=== PATIENT | female | born 1995 | race African-American/Black ===

== ENCOUNTER 2018-10-24 17:08 | Emergency (ER) | payer SELFPAY ==
[~2018-10-24] VITALS: Ht 152.4 cm; Wt 46.7 kg
[2018-10-24 17:49] LABS: BILIRUBIN,URINE NEGATIVE (NEG); CLARITY,URINE CLOUDY; COLOR,URINE YELLOW; NITRITE,URINE NEGATIVE (NEG); PROTEIN,URINE 30 mg/dL (NEG-TRACE)
--- NOTE | 2018-10-24 17:51 | PHYS DOC ---
Past Medical History Past Medical History: No Pertinent History Past Surgical History: Other Additional Past Surgical Histo: surgical Alcohol Use: None Drug Use: None Adult General Chief Complaint Chief Complaint: ABDOMINAL PAIN IN HPI HPI Patient is a 23 year old female who presents with private NC test was positive last week and ever since that she's had a sharp pain that comes and goes in her right lower abdomen. She rates it now at a 4 out of 10. She denies any nausea or vomiting or other abdominal pain. She denies any dysuria. Patient states this is her second chin and April 30 surgical procedure. Patient states she has no OB doctor. I asked period was August 28. She has no known drug allergies. Patient states she has more vaginal discharge than normal but denies any vaginal bleeding. Review of Systems Review of Systems Constitutional: Denies fever or chills [] Eyes: Denies change in visual acuity, redness, or eye pain [] HENT: Denies nasal congestion or sore throat [] Respiratory: Denies cough or shortness of breath [] Cardiovascular: No additional information not addressed in HPI [] GI: Right lower abdominal pain. Denies nausea, vomiting, bloody stools or diarrhea [] : Denies dysuria or hematuria [] Musculoskeletal: Denies back pain or joint pain [] Integument: Denies rash or skin lesions [] Neurologic: Denies headache, focal weakness or sensory changes [] All other systems were reviewed and found to be within normal limits, except as documented in this note. Current Medications Current Medications Current Medications Medications (Trade) Dose Ordered Sig/Natalie Start Time Stop Time Status Last Admin Dose Admin Azithromycin (Zithromax) 1,000 mg 1X ONCE 10/24/18 18:30 10/24/18 18:31 DC 10/24/18 19:30 1,000 MG Ceftriaxone Sodium (Rocephin Im) 250 mg 1X ONCE 10/24/18 18:30 10/24/18 18:31 DC 10/24/18 19:30 250 MG Allergies Allergies Allergies Coded Allergies Type Severity Reaction Last Updated Verified No Known Drug Allergies 11/17/15 No Physical Exam Physical Exam Constitutional: Well developed, well nourished, no acute distress, non-toxic appearance. [] HENT: Normocephalic, atraumatic, bilateral external ears normal, oropharynx moist, no oral exudates, nose normal. [] Eyes: PERRLA, EOMI, conjunctiva normal, no discharge. [] Neck: Normal range of motion, no tenderness, supple, no stridor. [] Cardiovascular:Heart rate regular rhythm, no murmur [] Lungs & Thorax: Bilateral breath sounds clear to auscultation [] Abdomen: Bowel sounds normal, soft, no tenderness, no masses, no pulsatile masses. Vaginal discharge. [] Skin: Warm, dry, no erythema, no rash. [] Back: No tenderness, no CVA tenderness. [] Extremities: No tenderness, no cyanosis, no clubbing, ROM intact, no edema. [] Neurologic: Alert and oriented X 3, normal motor function, normal sensory function, no focal deficits noted. [] Psychologic: Affect normal, judgement normal, mood normal. [] Current Patient Data Vital Signs Vital Signs Date Time Temp Pulse Resp B/P (MAP) Pulse Ox O2 Delivery O2 Flow Rate FiO2 10/24/18 17:19 98.7 102 18 112/62 (79) 100 Room Air 98.7 Lab Values Laboratory Tests Test 10/24/18 17:28 10/24/18 17:29 10/24/18 18:10 POC Urine HCG, Qualitative Hcg positive (Negative) Urine Collection Type Unknown Urine Color Yellow Urine Clarity Cloudy Urine pH 6.0 Urine Specific [place] >=1.030 Urine Protein 30 mg/dL (NEG-TRACE) Urine Glucose (UA) Negative mg/dL (NEG) Urine Ketones (Stick) Trace mg/dL (NEG) Urine Blood Small (NEG) Urine Nitrite Negative (NEG) Urine Bilirubin Negative (NEG) Urine Urobilinogen Dipstick 1.0 mg/dL (0.2 mg/dL) Urine Leukocyte Esterase Small (NEG) Urine RBC 3-5 /HPF (0-2) Urine WBC 5-10 /HPF (0-4) Urine Squamous Epithelial Cells Many /LPF Urine Bacteria Few /HPF (0-FEW) White Blood Count 4.9 x10^3/uL (4.0-11.0) Red Blood Count 3.63 x10^6/uL (3.50-5.40) Hemoglobin 11.7 g/dL (12.0-15.5) L Hematocrit 33.3 % (36.0-47.0) L Mean Corpuscular Volume 92 fL (79-100) Mean Corpuscular Hemoglobin 32 pg (25-35) Mean Corpuscular Hemoglobin Concent 35 g/dL (31-37) Red Cell Distribution Width 14.4 % (11.5-14.5) Platelet Count 300 x10^3/uL (140-400) Neutrophils (%) (Auto) 62 % (31-73) Lymphocytes (%) (Auto) 29 % (24-48) Monocytes (%) (Auto) 7 % (0-9) Eosinophils (%) (Auto) 1 % (0-3) Basophils (%) (Auto) 0 % (0-3) Neutrophils # (Auto) 3.0 x10^3uL (1.8-7.7) Lymphocytes # (Auto) 1.4 x10^3/uL (1.0-4.8) Monocytes # (Auto) 0.3 x10^3/uL (0.0-1.1) Eosinophils # (Auto) 0.1 x10^3/uL (0.0-0.7) Basophils # (Auto) 0.0 x10^3/uL (0.0-0.2) Maternal Serum HCG Beta Subunit 1779 mIU/mL (0-5) H Sodium Level 137 mmol/L (136-145) Potassium Level 3.3 mmol/L (3.5-5.1) L Chloride Level 102 mmol/L (98-107) Carbon Dioxide Level 28 mmol/L (21-32) Anion Gap 7 (6-14) Blood Urea Nitrogen 15 mg/dL (7-20) Creatinine 0.7 mg/dL (0.6-1.0) Estimated GFR (Cockcroft-Gault) 127.8 BUN/Creatinine Ratio 21 (6-20) H Glucose Level 94 mg/dL (70-99) Calcium Level 9.6 mg/dL (8.5-10.1) Total Bilirubin 1.7 mg/dL (0.2-1.0) H Aspartate Amino Transferase (AST) 14 U/L (15-37) L Alanine Aminotransferase (ALT) 13 U/L (14-59) L Alkaline Phosphatase 44 U/L (46-116) L Total Protein 8.6 g/dL (6.4-8.2) H Albumin 4.3 g/dL (3.4-5.0) Albumin/Globulin Ratio 1.0 (1.0-1.7) Laboratory Tests 10/24/18 18:10 Laboratory Tests 10/24/18 18:10 Microbiology 10/24/18 Wet Prep - Final, Complete EKG EKG [] Radiology/Procedures Radiology/Procedures OB US Impressions: [facility] [address] [place] [address] IMAGING REPORT Signed PATIENT: AUSTIN DONALDSON ACCOUNT: [id number] : 1995 LOCATION: ER AGE: 23 SEX: F EXAM STATUS: REG ER ORD. PHYSICIAN: JAYASHREE MENSAH APRN REASON: ABDOMINAL PAIN WITH PROCEDURE: OB <14 WKS W/TV OB ultrasound less than 14 weeks HISTORY: Pelvic pain and Sonographic examination of the was performed by transabdominal and endovaginal technique and multiple static images were obtained. OB ultrasound less than 14 weeks transabdominal: There is poor visualization by transabdominal technique. Transvaginal OB ultrasound: The uterus appears normal. The endometrium measures 1.6 centers in thickness. There is a 3.7 mm hypoechoic structure which could be a 5 week 1 day gestational age sac however there is no yolk sac or pole. The left ovary appears normal normal blood flow. There may be a small hemorrhagic corpus sagittal cyst in the right ovary. There is trace of free fluid. IMPRESSION: Possible early . Recommend correlation with serial beta hCG. If the continues a short-term follow-up ultrasound is recommended in order to document a viable intrauterine and thereby exclude possible ectopic . Electronically signed by: Adelaide Bates III, MD (10/24/2018 7:32 PM) [facility] DICTATED and SIGNED BY: ADELAIDE BATES III, MD DATE: 10/24/181928 Course & Med Decision Making Course & Med Decision Making Patient is a 23 year old female who presents with private NC test was positive last week and ever since that she's had a sharp pain that comes and goes in her right lower abdomen. She rates it now at a 4 out of 10 that is nonradiating. She denies any nausea or vomiting or other abdominal pain. She denies any dysuria. Patient states this is her second chin and April 30 surgical procedure. Patient states she has no OB doctor. last menstrual period was August 28. She has no known drug allergies. Patient states she has more vaginal discharge than normal but denies any vaginal bleeding. Given pink warm and dry. Alert and oriented. Walks with a steady gait. Has no extremity swelling. Lungs are clear to auscultation all lobes. Heart rate regular without murmur. Vital signs are normal. Afebrile. Abdomen is soft and nontender. Patient denies any dysuria or urinary symptoms. Patient will receive a pelvic exam and will be tested for STDs. Patient states that she would like to be treated prophylactically for STDs. She is treated prophylactically for STDs. Ultrasound of pelvis shows Possible early . Recommend correlation with serial beta hCG. If the continues a short-term follow-up ultrasound is recommended in order to document a viable intrauterine and thereby exclude possible ectopic . Urinalysis shows possible urinary tract infection. Patient will be treated for urinary tract infection. Patient will be discharged home and referred to OB as soon as possible. Pelvic Exam: Peat Shredder Tender present Abdomen: Nontender External Genitalia: Normal Skin Speculum: Normal vaginal mucosa, White/ Yellow cervical discharge Bimanual: No adnexal masses or tenderness, No CMT [] Dragon Disclaimer Dragon Disclaimer This electronic medical record was generated, in whole or in part, using a voice recognition dictation system. Departure Departure Impression: Primary Impression: Urinary tract infection affecting Additional Impression: Sexually transmitted disease Disposition: HOME, SELF-CARE Condition: STABLE Referrals: NO PCP (PCP) AYSHA JOHNSON MD Patient Instructions: Sexually Transmitted Disease, Urinary Tract Infection Additional Instructions: Call her OB tomorrow to make an appointment. Take medications as prescribed. Scripts Nitrofurantoin Monohyd/M-Cryst (MACROBID 100 MG CAPSULE) 100 Mg Capsule 1 CAP PO BID, #14 CAP Prov: JAYASHREE MENSAH APRN 10/24/18 Problem Qualifiers JAYASHREE MENSAH JOB SERVICE CONSULTANT Oct 24, 2018 17:51
[2018-10-24 18:18] LABS: BACTERIA,URINE FEW /HPF (0-FEW); SQUAMOUS EPITHELIAL CELL,UR MANY /LPF
[2018-10-24 18:24] LABS: BASO % 0 % (0-3); EOS # 0.1 x10^3/uL (0.0-0.7); EOS % 1 % (0-3); HEMATOCRIT 33.3 % (36.0-47.0); HEMOGLOBIN 11.7 g/dL (12.0-15.5); LYMPH # 1.4 x10^3/uL (1.0-4.8); LYMPH % 29 % (24-48); MEAN CORPUSCULAR HEMOGLOBIN 32 pg (25-35); MEAN CORPUSCULAR HGB CONC 35 g/dL (31-37); MEAN CORPUSCULAR VOLUME 92 fL (79-100); MONO # 0.3 x10^3/uL (0.0-1.1); MONO % 7 % (0-9); NEUT % 62 % (31-73); PLATELET COUNT 300 x10^3/uL (140-400); RED BLOOD COUNT 3.63 x10^6/uL (3.50-5.40); RED CELL DISTRIBUTION WIDTH 14.4 % (11.5-14.5); WHITE BLOOD COUNT 4.9 x10^3/uL (4.0-11.0)
[2018-10-24] MEDS ORDERED: AZITHROMYCIN 250 MG TABLET. PO ONE (18:30)
[2018-10-24] MEDS ORDERED: cefTRIAXone IM 250 MG VIAL IM ONE (18:30)
[2018-10-24 18:36] LABS: CALCIUM 9.6 mg/dL (8.5-10.1); CREATININE 0.7 mg/dL (0.6-1.0); GFR 127.8; POTASSIUM 3.3 mmol/L (3.5-5.1)
[2018-10-24 18:42] LABS: ALBUMIN 4.3 g/dL (3.4-5.0); TOTAL BILIRUBIN 1.7 mg/dL (0.2-1.0); TOTAL PROTEIN 8.6 g/dL (6.4-8.2)
--- NOTE | 2018-10-24 19:35 | RAD ---
OB ultrasound less than 14 weeks HISTORY: Pelvic pain and Sonographic examination of the was performed by transabdominal and endovaginal technique and multiple static images were obtained. OB ultrasound less than 14 weeks transabdominal: There is poor visualization by transabdominal technique. Transvaginal OB ultrasound: The uterus appears normal. The endometrium measures 1.6 centers in thickness. There is a 3.7 mm hypoechoic structure which could be a 5 week 1 day gestational age sac however there is no yolk sac or pole. The left ovary appears normal normal blood flow. There may be a small hemorrhagic corpus sagittal cyst in the right ovary. There is trace of free fluid. IMPRESSION: Possible early . Recommend correlation with serial beta hCG. If the continues a short-term follow-up ultrasound is recommended in order to document a viable intrauterine and thereby exclude possible ectopic . Electronically signed by: Rajeev Briones III, MD (10/24/2018 7:32 PM) [facility]
[2018-10-24 19:37] VITALS: BP 120/91
[2018-10-24] MEDS ORDERED: NITR100C62 PO (19:44)
[2018-10-26 13:22] LABS: GC PROBE Negative (Negative)
== END 2018-10-24 19:48 | disposition home or self-care (01) ==
LOC: ER 17:08
DX: O23.41 Unspecified infection of urinary tract in pregnancy, first trimester (principal); O98.311 Other infections with a predominantly sexual mode of transmission complicating pregnancy, first trimester; Z3A.01 Less than 8 weeks gestation of pregnancy
CPT/HCPCS: 36415; 76801; 76817; 80053; 81001; 81025; 84702; 85025; 86850; 86900; 86901; 87086; 87491; 87591; 96372; 99284; J0696; Q0111; Q0144

== ENCOUNTER → 2018-12-11 | Outpatient (CLI) | payer OTHER ==
[~2018-12-11] MED LIST: DOXY100C14 PO; HYDR-3164 PO; METH0.2T36 PO; NAPR-514 PO; NAPR500T8 PO; NITR100C62 PO
--- NOTE | 2018-12-11 14:36 | RAD ---
Obstetrical ultrasound, 12/11/2018: HISTORY: Molar Transabdominal and transvaginal scans were obtained. The central uterine cavity is distended with predominantly hyperechoic, heterogeneous material measuring at least 3.5 cm in AP diameter. There is a fluid collection within this process demonstrating a mean diameter of 2.4 cm. The rim of this fluid collection is angulated suggesting an abnormal gestational sac. There are small nonspecific echoes along its johnson without evidence of cardiac type activity. No yolk sac is seen. A nonviable is suspected. There is a separate small 1.6 cm fluid collection adjacent to the larger fluid collection perhaps representing subchorionic hemorrhage. The ovaries are of normal size. Small follicular cysts are present in the left ovary. A 1.8 cm nearly isoechoic nodule is noted in the right ovary. There appears to be internal color flow suggesting a solid nodule. The adnexal regions are otherwise unremarkable. No free fluid is evident in the pelvis. IMPRESSION: 1. Heterogeneous material in the central uterine cavity including a 2.4 cm cystic structure as described above. A nonviable is most likely. Correlation with serial hCG titers is suggested in evaluating the possibility of gestational trophoblastic disease. 2. Possible small solid right ovarian nodule. Sonographic follow-up is suggested. Electronically signed by: Rao Oviedo MD (12/11/2018 2:32 PM) [facility]
== END | disposition home or self-care (01) ==
LOC: US 12:37
PROVIDERS: ATTEND Specialist
DX: O26.891 Other specified pregnancy related conditions, first trimester (principal); O02.0 Blighted ovum and nonhydatidiform mole; Z3A.01 Less than 8 weeks gestation of pregnancy
CPT/HCPCS: 76801; 76817

== ENCOUNTER 2018-12-16 06:20 | Observation (INO) | payer OTHER ==
[~2018-12-16 06:20] MED LIST changes: -DOXY100C14 PO; -HYDR-3164 PO; -METH0.2T36 PO; -NAPR-514 PO; -NAPR500T8 PO
[2018-12-16] MEDS ORDERED: miSOPROStol 200MCG TAB 200 MCG TABLET ONE (07:04)
[2018-12-16] MEDS ORDERED: OXYTOCIN 10 UNIT/ML VIAL. ONE ×2 (07:04→08:50)
[2018-12-16] MEDS ORDERED: IV RINGERS,LACTATED 1000ML 1,000 ML IV SCH (07:47)
[2018-12-16] MEDS ORDERED: SEVOFLURANE 16 TO 30 MINUTES. IH ONE (07:51)
[2018-12-16] MEDS ORDERED: PROPOFOL 20 ML IV ONE (07:51)
[2018-12-16] MEDS ORDERED: LIDOCAINE 2% PF Vial for OR 5 ML VIAL. ONE (07:51)
[2018-12-16] MEDS ORDERED: DEXAMETHASONE SOD PHOS 20 MG/5 ML VIAL. ONE (07:56)
[2018-12-16] MEDS ORDERED: ONDANSETRON PF 4 MG/2 ML VIAL. IV PRN (08:00)
[2018-12-16] MEDS ORDERED: LIDOCAINE 1% PF 2 ML VIAL. ID PRN (08:00)
[2018-12-16] MEDS ORDERED: MORPHINE SULFATE 2 MG/ML VIAL. IV PRN (08:00)
[2018-12-16] MEDS ORDERED: fentaNYL PF VIAL 100 MCG/2 ML VIAL IV PRN ×2 (08:00)
[2018-12-16] MEDS ORDERED: HYDROmorphone 2 MG/ML VIAL IV PRN (08:00)
[2018-12-16] MEDS ORDERED: PROCHLORPERAZINE 10 MG/2 ML VIAL. IV PRN (08:00)
[2018-12-16] MEDS ORDERED: KETOROLAC 30 MG/ML INJ FOR OR. INJ ONE (08:22)
--- NOTE | 2018-12-16 08:58 | PDOC ---
BRIEF OPERATIVE NOTE Date: Dec 16, 2018 Pre-Op Diagnosis incompleta ab Post-Op Diagnosis same Procedure Performed Suction D and C Surgeon Carmine Anesthesia Type: General Blood Loss 100cc Specimens Obtained POC Complications None AYSHA JOHNSON MD Dec 16, 2018 08:57
[2018-12-16] MEDS ORDERED: METH0.2T36 PO ×2 (09:00→10:01)
[2018-12-16] MEDS ORDERED: DOXY100C14 PO ×2 (09:00→10:01)
[2018-12-16] MEDS ORDERED: NAPR-514 PO (09:00)
[2018-12-16] MEDS ORDERED: HYDR-3164 PO ×2 (09:00→10:02)
--- NOTE | 2018-12-16 09:24 | OP ---
DATE OF SURGERY: 12/16/2018 PREOPERATIVE DIAGNOSIS: Incomplete . POSTOPERATIVE DIAGNOSIS: Incomplete . PROCEDURE: 1. Exam under anesthesia. 2. Suction D and C. SURGEON: Abad Lou M.D. WASHTUB WORKER: None. ANESTHESIA: General. ESTIMATED BLOOD LOSS: 100 mL. FLUIDS: Crystalloid. SPECIMENS: Products of conception. COMPLICATIONS: None. CONDITION: Stable. DESCRIPTION OF PROCEDURE: Risks, benefits, indication, alternatives discussed in detail with the patient and the patient's significant other. The patient was brought to OR theater, placed in the dorsal lithotomy position in Minh stirrups. Under adequate general anesthesia, the patient was prepped and draped in usual sterile manner. Exam under anesthesia was performed. Uterus approximately 8-9 week size, anteflexed and boggy. Posterior weighted speculum was placed in the vaginal vault. Cervix was grasped with single tooth tenaculum. Cervix was dilated with Hegar dilator to receive a #7 curved suction cannula. Gentle suction curettage was performed in all quadrants. Product of conception was seen going through the clear tubing. Sharp curettage was then performed until uterine cry was heard. Suction cannula was once again passed. Further products of conception were seen. Another sharp curettage was performed until uterine cry was heard. The suction cannula was again passed. No further products of conception were seen going through the clear tubing. The procedure was terminated. The single tooth tenaculum was removed. Puncture sites were hemostatic. Vaginal vault was wiped clean of any blood or hard tissue. Sponge, needle and instrument counts were correct x 2 per nursing staff. The patient went to postop anesthesia recovery in stable condition. ABAD LOU MD DR: CARO/mecca JOB#: [id number] / [id number]
[2018-12-16] MEDS ORDERED: NAPR500T8 PO (10:02)
--- NOTE | 2018-12-19 15:09 | PATHOLOGY ---
[facility] Accession Number: [id number] . 01 Material submitted: . PRODUCTS OF CONCEPTION . 01 Clinical history: . D/C . 02 Diagnosis: Uterine contents, D and C: - Products of conception, comprised of immature chorionic villi showing focal hydropic degenerative changes, and segments of decidual tissue showing focal necrosis. (JPM:reel worker; 12/19/2018) MBR/12/19/2018 . 02 Electronically signed: . Cj Bruce MD, Pathologist NPI- [id number] . 01 Gross description: . The specimen is received in formalin, labeled "Kyra Brito, products of conception" and consists of a filter sock containing a 72 g aggregate of blood clot admixed with frederick-monahan soft and villiform tissue measuring 11.0 x 6.3 x 2.2 cm. A gestational sac is identified. No parts or vesicular structures are identified. A sales donor recruitment representative portion is submitted in A1-A3. (SDY; 12/18/2018) SYU/SYU . 02 Pathologist provided ICD-10: O02.89 . 02 CPT . 799009 Specimen Comment: A courtesy copy of this report has been sent to Specimen Comment: [phone]. Specimen Comment: Report sent to Performed at: 01 [facility] [address], [place] [id number] MD Vicente Oneill MD Phone: [phone] Performed at: 02 [facility] [address], [place] [id number] MD Cj Bruce MD Phone: [phone]
== END 2018-12-16 10:33 | disposition home or self-care (01) ==
LOC: OPSVCIP 06:20
PROVIDERS: ADMIT Specialist; ATTEND Specialist
DX: O03.4 Incomplete spontaneous abortion without complication (principal)
CPT/HCPCS: 59812; G0378; G0379; J1100; J1885; J2001; J2590; J2704

== ENCOUNTER 2021-12-06 09:19 | Emergency (ER) | payer BC, OTHER ==
[~2021-12-06] VITALS: Ht 152.4 cm; Wt 48.0 kg
[~2021-12-06 09:19] MED LIST changes: +DOXY-181 PO; +HYDR-3164 PO; +METH0.2T36 PO; +NAPR-514 PO; +NAPR500T8 PO
--- NOTE | 2021-12-06 12:21 | PHYS DOC ---
Past Medical History Past Medical History: No Pertinent History Past Surgical History: Other Additional Past Surgical Histo: surgical Smoking Status: Never Smoker Alcohol Use: None Drug Use: None General Adult EDM: Chief Complaint: VOMITING IN HPI: HPI: Patient is a 26 year old female who presents with generalized mid lower abdominal pain and cramping. She is , with her last menstrual periods occurring sometime in early to mid September. She denies vaginal discharge or bleeding. She denies urinary symptoms. She reports some nausea and vomiting symptoms. She denies any constipation or diarrhea. She denies fevers or chills. She denies any focal abdominal pain. She has had 3 previous miscarriages with D&C, all miscarriages occurred in first trimester. No live births reported. Her last D&C and miscarriage occurred in February 2021. No previous abdominal surgeries reported. No reported history of PID or STI. Review of Systems: Review of Systems: Constitutional: Denies fever or chills. [] HENT: Denies nasal congestion or sore throat. [] Respiratory: Denies cough or shortness of breath. [] Cardiovascular: Denies chest pain or edema. [] GI: Generalized abdominal pain, cramping. Nausea and vomiting. Denies constipation or diarrhea : Denies any urinary symptoms, denies vaginal discharge or bleeding. Musculoskeletal: Denies back pain or joint pain. [] Integument: Denies rash. [] Neurologic: Denies headache, focal weakness or sensory changes. [] Psychiatric: Denies depression or anxiety. [] Heart Score: C/O Chest Pain: No Risk Factors: Risk Factors: DM, Current or recent (<one month) smoker, HTN, HLP, family history of CAD, obesity. Risk Scores: Score 0 - 3: 2.5% MACE over next 6 weeks - Discharge Home Score 4 - 6: 20.3% MACE over next 6 weeks - Admit for Clinical Observation Score 7 - 10: 72.7% MACE over next 6 weeks - Early Invasive Strategies Allergies: Allergies: Allergies Coded Allergies Type Severity Reaction Last Updated Verified No Known Drug Allergies 11/17/15 No Physical Exam: PE: Constitutional: Well developed, well nourished, no acute distress, non-toxic appearance. [] HENT: Normocephalic, atraumatic, mucous membranes are moist Eyes: Conjunctiva normal, no discharge. [] Neck: Normal range of motion, no tenderness, supple, no stridor. [] Cardiovascular:Heart rate regular rhythm, well-perfused appearing, no peripheral Lungs & Thorax: Bilateral breath sounds clear to auscultation [] Abdomen: Abdomen is soft, nondistended, nontender to palpation, no palpable masses organomegaly, normal bowel sounds, no flank abdominal ecchymoses, no CVA tenderness. Skin: Warm, dry, no erythema, no rash. [] Back: No tenderness, no CVA tenderness. [] Extremities: No tenderness, no cyanosis, no clubbing, ROM intact, no edema. No calf tenderness Neurologic: Alert and oriented X 3, normal motor function, normal sensory function, no focal deficits noted. [] Psychologic: Affect normal, judgement normal, mood normal. She is pleasant and cooperative. Current Patient Data: Labs: Laboratory Tests Test 12/06/21 12:13 POC Urine HCG, Qualitative Hcg positive (Negative) EKG: EKG: [] Radiology/Procedures: Radiology/Procedures: IMAGING REPORT Signed PATIENT: AUSTIN DONALDOSN MACCOUNT: [id number] : 1995 LOCATION: ER AGE: 26 SEX: F EXAM STATUS: REG ER ORD. PHYSICIAN: DARCIE ALEMAN DO REASON: , pain PROCEDURE: OB <14 WKS W/TV OB ultrasound less than 14 weeks 12/06/2021 CLINICAL HISTORY: First trimester with pelvic pain. TECHNIQUE: Using the distended urinary bladder as a sonographic window, a real- time ultrasound examination of the pelvis was performed. Multiple images were obtained. FINDINGS: A gestational sac is seen within the endometrial canal of the body/fundus of the uterus. Within this gestational sac an embryonic pole and associated yolk sac are seen. The CRL of the embryonic pole measures 5.7 mm. This corresponds to an estimated gestational age by ultrasound of 6 weeks 3 days plus or minus a standard deviation of 4 days. Embryonic cardiac activity is seen with a heart rate of 119 bpm. The placenta is not yet developed. The amniotic fluid volume is within normal limits. A hypoechoic area is seen inferior to the gestational sac which measures 1.3 cm in greatest diameter. This may represent an area of subchorionic hemorrhage. Both ovaries are within normal limits in size and echogenicity. The right ovary measures 2.0 x 1.8 x 1.7 cm in size. The left ovary measures 2.4 x 1.6 x 2.0 cm in size. No adnexal mass is seen. No free fluid is noted. IMPRESSION: Single living IUP with an estimated gestational age by ultrasound of 6 weeks 3 days plus or minus a standard deviation of 4 days. The estimated date of delivery by ultrasound is 07/29/2022. Electronically signed by: García Antonio MD (12/06/2021 2:55 PM) [id number] DICTATED and SIGNED BY: GARCÍA ANTONIO MD DATE: 12/06/21 [id number] Course & Med Decision Making: Course & Med Decision Making Pertinent Labs and Imaging studies reviewed. (See chart for details) Patient is given IV fluids and IV Zofran. She is resting comfortably. She declines pain medication at this time. Ultrasound demonstrates IUP at 6 weeks and 3 days. She has an OB with whom she can follow-up and establish care, I recommend she call this week in order to do this. She has a benign, nonsurgical abdominal exam. She is well-appearing. I have discussed all of the findings, differential diagnosis and plan of care with her. I recommend she eat a bland diet, stay well-hydrated. She is to avoid any strenuous activity, adhere to pelvic rest, contact her OB for follow-up PETER. Strict return precautions are given. She verbalizes understanding and is comfortable with the plan of care. Cordell Disclaimer: Cordell Disclaimer: This electronic medical record was generated, in whole or in part, using a voice recognition dictation system. Departure Departure Impression: Primary Impression: Abdominal pain during in first trimester Additional Impression: Nausea and vomiting in Disposition: 01 HOME / SELF CARE / HOMELESS Condition: STABLE Referrals: NO PCP (PCP) Patient Instructions: Abdominal Pain During , Nausea and Vomiting Additional Instructions: Use the medication as needed/as directed. Eat a bland diet, drink plenty of clear fluids. Return to the ER for severe abdominal pain, uncontrolled vomiting, dehydration, fever 100.4 or higher, if you develop any vaginal bleeding or any other concerns. Please contact your OB doctor to establish care and for follow-up. Scripts Doxylamine/Pyridoxine Hcl (DICLEGIS DR 10-10 MG TABLET) 1 Each Tablet.dr 1 EACH PO QHS for vomiting, #20 TAB.SR Prov: DARCIE ALEMAN DO 12/06/21 Ondansetron Hcl (ONDANSETRON HCL) 4 Mg Tablet 1 TAB PO PRN Q6HRS for vomiting, #15 TAB 1 Refill Prov: DARCIE ALEMAN DO 12/06/21 DARCIE ALEMAN DO Dec 06, 2021 12:21
[2021-12-06 12:52] LABS: BASO # 0.1 x10^3/uL (0.0-0.2); BASO % 1 % (0-3); EOS % 1 % (0-3); HEMATOCRIT 33.5 % (36.0-47.0); HEMOGLOBIN 11.6 g/dL (12.0-15.5); LYMPH % 22 % (24-48); MEAN CORPUSCULAR HEMOGLOBIN 33 pg (25-35); MEAN CORPUSCULAR HGB CONC 35 g/dL (31-37); MEAN CORPUSCULAR VOLUME 94 fL (79-100); MONO # 0.4 x10^3/uL (0.0-1.1); MONO % 9 % (0-9); NEUT # 3.1 x10^3/uL (1.8-7.7); NEUT % 67 % (31-73); PLATELET COUNT 288 x10^3/uL (140-400); RED BLOOD COUNT 3.58 x10^6/uL (3.50-5.40); RED CELL DISTRIBUTION WIDTH 12.2 % (11.5-14.5); WHITE BLOOD COUNT 4.6 x10^3/uL (4.0-11.0)
[2021-12-06] MEDS: ONDANSETRON PF 4 MG/2 ML VIAL. IVP ONE (12:52)
[2021-12-06] MEDS: IV NORMAL SALINE 1000ML BAG 1,000 ML IV ONE (12:52)
[2021-12-06 12:53] LABS: BILIRUBIN,URINE SMALL (NEG); CLARITY,URINE CLEAR; COLOR,URINE AMBER; NITRITE,URINE NEGATIVE (NEG); PH,URINE 6.5 (<5.0-8.0); PROTEIN,URINE 30 mg/dL (NEG-TRACE)
[2021-12-06 13:02] LABS: CALCIUM 8.9 mg/dL (8.5-10.1); CREATININE 0.6 mg/dL (0.6-1.0); GFR 148.6; POTASSIUM 3.2 mmol/L (3.5-5.1)
[2021-12-06 13:05] LABS: BACTERIA,URINE FEW /HPF (0-FEW); RBC,URINE OCC /HPF (0-2)
[2021-12-06 13:06] LABS: AMORPHOUS SEDIMENT,UR PRESENT /HPF
[2021-12-06 13:08] LABS: ALBUMIN/GLOBULIN RATIO 0.9 (1.0-1.7); TOTAL BILIRUBIN 0.8 mg/dL (0.2-1.0); TOTAL PROTEIN 8.5 g/dL (6.4-8.2)
--- NOTE | 2021-12-06 14:57 | RAD ---
OB ultrasound less than 14 weeks 12/06/2021 CLINICAL HISTORY: First trimester with pelvic pain. TECHNIQUE: Using the distended urinary bladder as a sonographic window, a real-time ultrasound examin ation of the pelvis was performed. Multiple images were obtained. FINDINGS: A gestational sac is seen within the endometrial canal of the body/fundus of the uterus. Wi thin this gestational sac an embryonic pole and associated yolk sac are seen. The CRL of the embryoni c pole measures 5.7 mm. This corresponds to an estimated gestational age by ultrasound of 6 weeks 3 d ays plus or minus a standard deviation of 4 days. Embryonic cardiac activity is seen with a heart rat e of 119 bpm. The placenta is not yet developed. The amniotic fluid volume is within normal limits. A hypoechoic area is seen inferior to the gestational sac which measures 1.3 cm in greatest diameter. This may represent an area of subchorionic hemorrhage. Both ovaries are within normal limits in size and echogenicity. The right ovary measures 2.0 x 1.8 x 1.7 cm in size. The left ovary measures 2.4 x 1.6 x 2.0 cm in size. No adnexal mass is seen. No free fluid is noted. IMPRESSION: Single living IUP with an estimated gestational age by ultrasound of 6 weeks 3 days plus or minus a standard deviation of 4 days. The estimated date of delivery by ultrasound is 07/29/2022. Electronically signed by: García Bhatt MD (12/06/2021 2:55 PM) [id number]
[2021-12-06 15:04] VITALS: BP 96/55
[2021-12-06] MEDS ORDERED: ONDA-84 PO (15:11)
[2021-12-06] MEDS ORDERED: DOXY1TAB3 PO (15:11)
== END 2021-12-06 15:42 | disposition home or self-care (01) ==
LOC: ER 09:19
DX: O26.891 Other specified pregnancy related conditions, first trimester (principal); R10.84 Generalized abdominal pain; O21.9 Vomiting of pregnancy, unspecified; Z3A.01 Less than 8 weeks gestation of pregnancy
CPT/HCPCS: 36415; 76801; 76817; 80053; 81001; 81025; 83690; 84702; 85025; 96361; 96374; 99285; J2405; J7030

== ENCOUNTER 2022-01-20 09:54 | Observation (INO) | payer BC ==
[~2022-01-20] VITALS: Ht 152.4 cm; Wt 48.6 kg
[~2022-01-20 09:54] MED LIST changes: +DOXY1TAB3 PO; +ONDA-84 PO
--- NOTE | 2022-01-20 10:41 | PHYS DOC ---
Past Medical History Past Medical History: No Pertinent History (MASON HAWLEY) Additional Past Surgical Histo: multiple D&Cs (MASON HAWLEY) Smoking Status: Never Smoker Alcohol Use: None Drug Use: None (MASON HAWLEY) General Adult EDM: Chief Complaint: VAGINAL BLEEDING HPI: HPI: Patient is a 26 year old A4 who presents with increased vaginal bleeding. Patient states that she was about a month ago, but had a miscarriage on 12/14/21. She states she has had spotting since that time, but 2 days ago began bleeding more heavily. She states that she changes her pad/tampon about once per hour. Patient denies that she bleeds through, prompting her to change pad/tampon. Patient has been a total of 4 times, with each ending in miscarriage. She has not had a full WRAPPER OFF work-up regarding multiple early miscarriages. Patient reports associated fatigue and cramping that is similar to menstrual cramps; denies vaginal pain, increased discharge, malodor. She denies family history of blood clotting disorders. (MASON HAWLEY) Review of Systems: Review of Systems: Constitutional: Denies fever, chills or generalized weakness Eyes: Denies change in visual acuity, visual field deficits or discharge HENT: Denies ear pain, nasal congestion or sore throat Respiratory: Denies cough or shortness of breath Cardiovascular: Denies chest pain, palpitations or edema GI: Denies abdominal pain, nausea, vomiting, bloody stools or diarrhea : Denies dysuria or hematuria Musculoskeletal: Denies back pain or joint pain Integument: Denies rash or other skin lesion Neurologic: Denies headache, focal weakness or sensory changes (MASON HAWLEY) Heart Score: C/O Chest Pain: No (MASON HAWLEY) Allergies: Allergies: Allergies Coded Allergies Type Severity Reaction Last Updated Verified No Known Drug Allergies 01/20/22 No (MASON HAWLEY) Physical Exam: PE: Constitutional: Well developed, well nourished, no acute distress, non-toxic appearance. HENT: Normocephalic, atraumatic, bilateral external ears normal, nose normal. Eyes: EOMI, conjunctiva pink and moist, no discharge. Neck: Normal range of motion, no stridor. Abdomen: Bowel sounds normal, soft, no tenderness, no rebound or guarding, no masses, no pulsatile masses. Skin: Warm, dry, no erythema, no rash. Back: No tenderness, no CVA tenderness. Extremities: No tenderness, no cyanosis, no clubbing, ROM intact, no edema. Neurologic: Alert and oriented x4, steady and symmetrical upright gait, no focal deficits noted. (MASON HAWLEY) Current Patient Data: Labs: Laboratory Tests Test 01/20/22 10:25 White Blood Count 6.4 x10^3/uL (4.0-11.0) Red Blood Count 3.28 x10^6/uL (3.50-5.40) Hemoglobin 10.5 g/dL (12.0-15.5) Hematocrit 31.6 % (36.0-47.0) Mean Corpuscular Volume 96 fL (79-100) Mean Corpuscular Hemoglobin 32 pg (25-35) Mean Corpuscular Hemoglobin Concent 33 g/dL (31-37) Red Cell Distribution Width 13.2 % (11.5-14.5) Platelet Count 300 x10^3/uL (140-400) Neutrophils (%) (Auto) 69 % (31-73) Lymphocytes (%) (Auto) 25 % (24-48) Monocytes (%) (Auto) 5 % (0-9) Eosinophils (%) (Auto) 1 % (0-3) Basophils (%) (Auto) 1 % (0-3) Neutrophils # (Auto) 4.4 x10^3/uL (1.8-7.7) Lymphocytes # (Auto) 1.6 x10^3/uL (1.0-4.8) Monocytes # (Auto) 0.3 x10^3/uL (0.0-1.1) Eosinophils # (Auto) 0.0 x10^3/uL (0.0-0.7) Basophils # (Auto) 0.1 x10^3/uL (0.0-0.2) Maternal Serum HCG Beta Subunit 290 mIU/mL (0-5) Sodium Level 143 mmol/L (136-145) Potassium Level 3.5 mmol/L (3.5-5.1) Chloride Level 106 mmol/L (98-107) Carbon Dioxide Level 25 mmol/L (21-32) Anion Gap 12 (6-14) Blood Urea Nitrogen 10 mg/dL (7-20) Creatinine 0.7 mg/dL (0.6-1.0) Estimated GFR (Cockcroft-Gault) 124.4 BUN/Creatinine Ratio 14 (6-20) Glucose Level 89 mg/dL (70-99) Calcium Level 8.7 mg/dL (8.5-10.1) Total Bilirubin 1.3 mg/dL (0.2-1.0) Aspartate Amino Transf (AST/SGOT) 9 U/L (15-37) Alanine Aminotransferase (ALT/SGPT) 14 U/L (14-59) Alkaline Phosphatase 47 U/L (46-116) Total Protein 7.8 g/dL (6.4-8.2) Albumin 4.0 g/dL (3.4-5.0) Albumin/Globulin Ratio 1.1 (1.0-1.7) Vital Signs: Vital Signs Date Time Temp Pulse Resp B/P (MAP) Pulse Ox O2 Delivery O2 Flow Rate FiO2 01/20/22 10:17 98.3 83 20 132/78 (96) 100 98.3 (MASON HAWLEY) Radiology/Procedures: Radiology/Procedures: PROCEDURE: PELVIS COMPLETE EXAMINATION: US PELVIS COMPLETE, 01/20/2022 10:40 AM CLINICAL INDICATION: Miscarriage 12/14/2021. Spotting, now heavy bleeding TECHNIQUE: Grayscale, color and spectral Doppler ultrasound images of the pelvis via transabdominal and transvaginal approach. COMPARISON: OB ultrasound 12/06/2021 FINDINGS: The uterus measures 9.8 x 6.0 x 4.7 cm. The endometrial stripe measures 12 mm in thickness. No myometrial mass. The right ovary measures 2.5 x 2.3 x 1.6. The left ovary measures 2.6 x 2.0 x 1.8 cm. There is normal blood flow to both ovaries. No adnexal mass. Small amount of simple free fluid in the pelvis. IMPRESSION: Mildly thickened endometrium measuring 12 mm, retained products of conception possible. Electronically signed by: Tereza Huffman MD (01/20/2022 11:32 AM) [id number] (MASON HAWLEY) Course & Med Decision Making: Course & Med Decision Making Pertinent Labs and Imaging studies reviewed. (See chart for details) Patient is a 26 year old female that presents with vaginal bleeding 5 weeks s/p miscarriage. Patient has had three miscarriages prior to the most recent. Work- up today will include labs, pelvic ultrasound, urinalysis. Ultrasound shows possible retained products of conception and thickened endometrium. Dr. Summers, SENIOR CLINICIAN was consulted. He will see the patient here in the emergency room. Dr. Summers is going to perform a D&C on the patient today. She will be prepared to go to the OR. He will discharge her after procedure. Patient understands and is agreeable to treatment plan. (MASON HAWLEY) Dragon Disclaimer: Dragon Disclaimer: This electronic medical record was generated, in whole or in part, using a voice recognition dictation system. (MASON HAWLEY) Departure Departure Impression: Primary Impression: Incomplete Additional Impression: Anemia Qualified Codes: D64.9 - Anemia, unspecified Disposition: 09 ADMITTED INPATIENT Condition: STABLE Referrals: NO PCP (PCP) Attending Co-Sign The patient was seen and interviewed as well as examined at the bedside. The chart was reviewed. The case was discussed. Agree with the plan of care. (MAGDY HERRERA DO) MASON HAWLEY Jan 20, 2022 10:41 MAGDY HERRERA DO Jan 20, 2022 15:54
[2022-01-20 11:05] LABS: BASO # 0.1 x10^3/uL (0.0-0.2); BASO % 1 % (0-3); EOS % 1 % (0-3); HEMATOCRIT 31.6 % (36.0-47.0); HEMOGLOBIN 10.5 g/dL (12.0-15.5); LYMPH # 1.6 x10^3/uL (1.0-4.8); LYMPH % 25 % (24-48); MEAN CORPUSCULAR HEMOGLOBIN 32 pg (25-35); MEAN CORPUSCULAR HGB CONC 33 g/dL (31-37); MEAN CORPUSCULAR VOLUME 96 fL (79-100); MONO # 0.3 x10^3/uL (0.0-1.1); MONO % 5 % (0-9); NEUT # 4.4 x10^3/uL (1.8-7.7); NEUT % 69 % (31-73); PLATELET COUNT 300 x10^3/uL (140-400); RED BLOOD COUNT 3.28 x10^6/uL (3.50-5.40); RED CELL DISTRIBUTION WIDTH 13.2 % (11.5-14.5); WHITE BLOOD COUNT 6.4 x10^3/uL (4.0-11.0)
[2022-01-20 11:15] LABS: CALCIUM 8.7 mg/dL (8.5-10.1); CREATININE 0.7 mg/dL (0.6-1.0); GFR 124.4; POTASSIUM 3.5 mmol/L (3.5-5.1)
[2022-01-20 11:22] LABS: ALBUMIN/GLOBULIN RATIO 1.1 (1.0-1.7); TOTAL BILIRUBIN 1.3 mg/dL (0.2-1.0); TOTAL PROTEIN 7.8 g/dL (6.4-8.2)
--- NOTE | 2022-01-20 11:35 | RAD ---
EXAMINATION: US PELVIS COMPLETE, 01/20/2022 10:40 AM CLINICAL INDICATION: Miscarriage 12/14/2021. Spotting, now heavy bleeding TECHNIQUE: Grayscale, color and spectral Doppler ultrasound images of the pelvis via transabdominal a nd transvaginal approach. COMPARISON: OB ultrasound 12/06/2021 FINDINGS: The uterus measures 9.8 x 6.0 x 4.7 cm. The endometrial stripe measures 12 mm in thickness. No myomet rial mass. The right ovary measures 2.5 x 2.3 x 1.6. The left ovary measures 2.6 x 2.0 x 1.8 cm. There is normal blood flow to both ovaries. No adnexal mass. Small amount of simple free fluid in the pelvis. IMPRESSION: Mildly thickened endometrium measuring 12 mm, retained products of conception possible. Electronically signed by: Tereza Huffman MD (01/20/2022 11:32 AM) [id number]
[2022-01-20 14:15] VITALS: BP 124/72
--- NOTE | 2022-01-20 15:02 | PDOC1 ---
VP DIRECTOR OF CREATIVE STRATEGY H&P Date of Admission: Date of Admission: Jan 20, 2022 at 12:35 History of Present Illness: 26y presents to the ER with VB. The pt was recently , but had a missed AB on 12/14/21. Since that time the pt has had spotting until 2 days ago she had heavy bleeding. She reports her LMP was 10/22/21. When she presented to the ER 12/06/21 and u/s was performed revealing a 6.3 viable with a FHR 119. When she returned today (01/20/22) an u/s revealed the following: Mildly thickened endometrium measuring 12 mm, retained products of conception possible. Her quant was found to be 290. She states that she has never been w/u for her recurrent Abs. Many of them have had documented FHR. She was planning on it wi th the last , but was to distraught. PMH: Viridiana PSH: D&C x 4 Meds: None All: Amoxicillin, PCN OBHx: 4 x SAB from [id number] Tilesetter: LMP 10/22/21 6th grade / regular SH: no tob, rare EtOH FH: noncontributory Allergies: Coded Allergies: No Known Drug Allergies (Unverified , 01/20/22) Physical Exam: Vital Signs: Vital Signs Date Time Temp Pulse Resp B/P (MAP) Pulse Ox O2 Delivery O2 Flow Rate FiO2 01/20/22 13:20 58 20 121/71 (88) 100 01/20/22 10:17 98.3 98.3 PE: GENERAL: No apparent distress. Alert and oriented. HEENT: Head normocephalic, atraumatic. NECK: Supple LUNGS: Clear to auscultation. HEART: RRR, S1, S2 present, pulses intact ABDOMEN: Soft, positive bowel sounds. EXTREMITIES: No cyanosis or edema. NEUROLOGIC: Normal speech, normal tone PSYCHIATRIC: Normal affect, normal mood. SKIN: No ulceration. Labs: Laboratory Tests Test 01/20/22 10:25 01/20/22 13:37 White Blood Count 6.4 x10^3/uL (4.0-11.0) Red Blood Count 3.28 x10^6/uL (3.50-5.40) L Hemoglobin 10.5 g/dL (12.0-15.5) L Hematocrit 31.6 % (36.0-47.0) L Mean Corpuscular Volume 96 fL (79-100) Mean Corpuscular Hemoglobin 32 pg (25-35) Mean Corpuscular Hemoglobin Concent 33 g/dL (31-37) Red Cell Distribution Width 13.2 % (11.5-14.5) Platelet Count 300 x10^3/uL (140-400) Neutrophils (%) (Auto) 69 % (31-73) Lymphocytes (%) (Auto) 25 % (24-48) Monocytes (%) (Auto) 5 % (0-9) Eosinophils (%) (Auto) 1 % (0-3) Basophils (%) (Auto) 1 % (0-3) Neutrophils # (Auto) 4.4 x10^3/uL (1.8-7.7) Lymphocytes # (Auto) 1.6 x10^3/uL (1.0-4.8) Monocytes # (Auto) 0.3 x10^3/uL (0.0-1.1) Eosinophils # (Auto) 0.0 x10^3/uL (0.0-0.7) Basophils # (Auto) 0.1 x10^3/uL (0.0-0.2) Maternal Serum HCG Beta Subunit 290 mIU/mL (0-5) H Sodium Level 143 mmol/L (136-145) Potassium Level 3.5 mmol/L (3.5-5.1) Chloride Level 106 mmol/L (98-107) Carbon Dioxide Level 25 mmol/L (21-32) Anion Gap 12 (6-14) Blood Urea Nitrogen 10 mg/dL (7-20) Creatinine 0.7 mg/dL (0.6-1.0) Estimated GFR (Cockcroft-Gault) 124.4 BUN/Creatinine Ratio 14 (6-20) Glucose Level 89 mg/dL (70-99) Calcium Level 8.7 mg/dL (8.5-10.1) Total Bilirubin 1.3 mg/dL (0.2-1.0) H Aspartate Amino Transferase (AST) 9 U/L (15-37) L Alanine Aminotransferase (ALT) 14 U/L (14-59) Alkaline Phosphatase 47 U/L (46-116) Total Protein 7.8 g/dL (6.4-8.2) Albumin 4.0 g/dL (3.4-5.0) Albumin/Globulin Ratio 1.1 (1.0-1.7) SARS-CoV-2 Antigen (Rapid) Negative (NEGATIVE) Laboratory Tests 01/20/22 10:25 Laboratory Tests 01/20/22 10:25 Laboratory Tests 01/20/22 10:25 Assessment & Plan: A/P 26y with likely retained POC 1.) Retained POC presumed AB on 12/14/21 but still with quant of 290 and thickened endometrium. Will move toward D&C 2.) PCN and Amoxicillin All 3.) Recurrent loss BILL SIMON MD Jan 20, 2022 15:02
--- NOTE | 2022-01-20 15:31 | NUR ---
The patient, AUSTIN DONALDSON, 26 y/o, F admitted for observation by BILL SIMON MD, was given written information regarding hospital policies, and unit procedures. Pt. educated about pre-op POC. Pt. verbalized understanding and is agreeable to POC. Valuables were checked and left with pt. Pt. educated that valuables could be checked in with security. Pt. declined need.
[2022-01-20 15:35] VITALS: BP 119/70
--- NOTE | 2022-01-20 15:57 | NUR ---
PT. transferred to PACU with RETAIL MANAGER IN TRAINING via . All belongings sent with pt. POC for pt. to d/c home from surgery if stable.
[2022-01-20] MEDS ORDERED: DOXYCYCLINE HYCLATE 100 MG TABLET PO ONE (16:30)
[2022-01-20] MEDS ORDERED: HYDROmorphone 2 MG/ML INJ. IVP PRN (17:45)
[2022-01-20] MEDS ORDERED: IV RINGERS,LACTATED 1000ML 1,000 ML IV SCH (17:45)
[2022-01-20] MEDS ORDERED: fentaNYL PF VIAL 100 MCG/2 ML VIAL IVP PRN ×2 (17:45)
[2022-01-20] MEDS ORDERED: PROCHLORPERAZINE 10 MG/2 ML VIAL. IVP PRN (17:45)
[2022-01-20] MEDS ORDERED: MORPHINE SULFATE 2 MG/ML INJ. IVP PRN (17:45)
[2022-01-20] MEDS ORDERED: ONDANSETRON PF 4 MG/2 ML VIAL. ONE (19:21)
[2022-01-20] MEDS ORDERED: SEVOFLURANE 31 TO 60 MINUTES. IH ONE (19:21)
[2022-01-20] MEDS ORDERED: KETOROLAC 30 MG/ML VIAL. ONE (19:21)
[2022-01-20] MEDS ORDERED: DEXAMETHASONE SOD PHOS 4 MG/ML VIAL ONE (19:21)
[2022-01-20] MEDS ORDERED: LIDOCAINE 2% PF 5 ML VIAL. ONE (19:21)
[2022-01-20] MEDS ORDERED: PROPOFOL 10 MG/ML (20ML) VIAL. IV ONE (19:21)
[2022-01-20] MEDS ORDERED: fentaNYL PF VIAL 100 MCG/2 ML VIAL ONE (19:23)
--- NOTE | 2022-01-20 20:06 | PDOC4 ---
OPERATIVE NOTE: PreOp Dx: 1.) Retained POC, 2.) PCN and Amoxicillin All, 3.) Recurrent loss PostOp Dx: same Procedure: Suction D&C Surgeon: Howard Simon Anesthesia: GETA EBL: 50 cc Fluids: 800 cc UOP: 30 cc Findings: POC exiting os Complications: None Pathology: POC BILL SIMON MD Jan 20, 2022 20:06
[2022-01-20] MEDS ORDERED: IBUP-1060 PO (20:10)
[2022-01-20] MEDS ORDERED: OXYC1TAB15 PO (20:10)
--- NOTE | 2022-01-20 20:30 | OP ---
DATE OF SURGERY: 01/20/2022 PREOPERATIVE DIAGNOSES: 1. Retained products of conception. 2. PENICILLIN AND AMOXICILLIN ALLERGY. 3. Recurrent loss. POSTOPERATIVE DIAGNOSES: 1. Retained products of conception. 2. PENICILLIN AND AMOXICILLIN ALLERGY. 3. Recurrent loss. PROCEDURE: Suction D and C. SURGEON: Jorge L Summers MD ANESTHESIA: General endotracheal intubation. ESTIMATED BLOOD LOSS: 50 mL. FLUIDS: 800 mL. URINE OUTPUT: 30 mL. FINDINGS: Products of conception exiting os. COMPLICATIONS: None. PATHOLOGY: Products of conception. DESCRIPTION OF PROCEDURE: The patient was taken to the operating room where general endotracheal intubation was obtained without difficulty. The patient was prepped and draped in normal sterile fashion. Speculum was placed in the patient's vagina to visualize the cervix. The anterior lip of the cervix was then grasped with a single tooth tenaculum. The uterus was sufficiently dilated to allow for a 7 mm curved curette to be placed. Products of conception were noted exiting the os prior to even initiating the procedure. At that point, the curette was advanced to the fundus and the suction was activated. The curette was rotated until all products of conception were cleared. This occurred with a few passes. At that point, sharp curetting was performed until gritty texture was felt in all 4 quadrants. An additional pass with the suction curette was performed. This did release some additional tissue, but after 2 passes, a minimal blood or tissue was returning. At that point, procedure was terminated. Tenaculum was then removed with minimal bleeding at the tenaculum site. At that point, good hemostasis was noted. The patient was taken to recovery room in stable condition. A 200 mg of doxycycline were given prior to the procedure. CR DR: Narda TID: [id number]
[2022-01-20 20:36] VITALS: BP 115/65
--- NOTE | 2022-01-22 17:07 | PATHOLOGY ---
[facility] Accession Number: [id number] . 01 Material submitted: . product of conception - PRODUCTS OF CONCEPTION . 01 Clinical history: . RETAINED PRODUCTS OF CONCEPTIONL PRESENTED AB 12/14/21 DILATION AND CURETTAGE=SECTION . 02 Diagnosis: Uterine contents, suction D and C: - Products of conception, comprised of focally necrotic immature chorionic villi, segments of decidual tissue showing focal hemorrhage, necrosis, and acute inflammation, and segments of endometrial tissue showing chronic inflammation. (JPM:[facility]; 01/22/2022) [facility] 01/22/2022 1638 Local . 02 Electronically signed: . Cj Bruce MD, Pathologist NPI- [id number] . 01 Gross description: . The specimen is received in formalin, labeled "Kyra Brito, products of conception". Received is a 28 g, 8.0 x 6.0 x 3.0 cm aggregate of monahan-pink, focally hemorrhagic, posssible placental villous and decidual tissue, admixed with clotted hemorrhagic material. No parts or hydropic villi are grossly identified. Hand Polisher sections are submitted in cassette A1-A3. ([facility]; 01/21/2022) [facility] 01/22/2022 1137 Local . 02 Pathologist provided ICD-10: O73.1 . 02 CPT . 542540 Specimen Comment: A courtesy copy of this report has been sent to [phone] Specimen Comment: Report sent to Performed at: 01 [facility] [address], [place], [place] [id number] MD Jaison Cervantes MD Phone: [phone] Performed at: 02 [facility] [address] [place], [place] [id number] MD Cj Bruce MD Phone: [phone]
== END 2022-01-20 20:10 | disposition home or self-care (01) ==
LOC: ER 09:54 → 3 SO LND 12:35 → INTOOBSV 12:35 → 3 SO LND 14:00
PROVIDERS: ADMIT Obstetrics & Gynecology; ATTEND Obstetrics & Gynecology
DX: O03.4 Incomplete spontaneous abortion without complication (principal); Z20.822 Contact with and (suspected) exposure to COVID-19; N96 Recurrent pregnancy loss; D64.9 Anemia, unspecified; O99.011 Anemia complicating pregnancy, first trimester; R93.89 Abnormal findings on diagnostic imaging of other specified body structures; Z88.0 Allergy status to penicillin; Z3A.01 Less than 8 weeks gestation of pregnancy; Z79.899 Other long term (current) drug therapy; Z98.890 Other specified postprocedural states
CPT/HCPCS: 36415; 59820; 76856; 80053; 84702; 85025; 86850; 86900; 86901; 87426; 88305; 99284; A4930; G0378; J1100; J1885; J2405; J2704; J3010; J7120; U0003; G0379